=== PATIENT | male | born 1985 | race African-American/Black ===

== ENCOUNTER 2021-12-09 12:43 | Inpatient (IN) | payer OTHER, SELFPAY ==
[2021-12-09] MEDS ORDERED: Morphine 4 MG/ML VIAL ONE ×3 (12:54→13:42)
[2021-12-09] MEDS ORDERED: Boostrix 0.5 ML (Tdap) VIAL ONE (12:59)
[2021-12-09] MEDS ORDERED: CEFAZOLIN 1 GM VIAL ONE (12:59)
[2021-12-09 13:16] LABS: #Basophils 0.1 thou/uL (0.0-0.2); #Eosinphils 0.1 thou/uL (0.0-0.7); #Lymphocytes 1.2 thou/uL (1.20-3.40); #Monocytes 0.3 thou/uL (0.11-0.59); %Basophils 0.9 % (0.0-1.0); %Eosinophils 1.5 % (0.0-10.0); %Lymphocytes 21.8 % (21.0-51.0); %Neutrophils 69.7 % (42.0-75.0); Hemoglobin 14.3 g/dL (14.0-18.0); Mean Corpuscular HGB CONC 32.9 g/dL (32.0-36.0); Mean Corpuscular Hemoglobin 33.4 pg (27.0-31.0); Mean Platelet Volume 7.1 fL (7.4-10.4); Platelet Count 202 thou/uL (130-400); RBC Distribution Width 11.9 % (11.5-14.5); Red Blood Cell (RBC) Count 4.28 mill/uL (4.70-6.10); White Blood Cell (WBC) Count 5.7 thou/uL (4.8-10.8)
[2021-12-09 13:34] LABS: ALT (SGPT) 19 U/L (8-55); AST (SGOT) 21 U/L (5-34); Albumin 3.9 g/dL (3.5-5.0); Alcohol Less than 10 mg/dL (Less than 10); Alkaline Phosphatase 66 U/L (40-110); Anion Gap 16 mmol/L (10-20); BUN (Urea Nitrogen) 10 mg/dL (8.9-20.6); Bilirubin, Total 0.4 mg/dL (0.2-1.2); Calc. Creatinine Clearance 0 mL/min (70-130); Calcium 9.1 mg/dL (7.8-10.44); Carbon Dioxide 20 mmol/L (22-29); Chloride 103 mmol/L (98-107); Globulin 3.9 g/dL (2.4-3.5); Glucose 143 mg/dL (70-105); INR-International Normal Ratio 1.1; Potassium 4.3 mmol/L (3.5-5.1); Protein, Total 7.8 g/dL (6.0-8.3); Prothrombin Time 13.8 sec (12.0-14.7); Sodium 135 mmol/L (136-145)
[2021-12-09 13:36] LABS: PTT 31.1 sec (22.9-36.1)
[2021-12-09] MEDS ORDERED: hydrALAZINE 20 MG/ML VIAL SLOW IVP PRN (14:21)
[2021-12-09] MEDS ORDERED: Morphine 4 MG/ML VIAL SLOW IVP PRN (14:21)
[2021-12-09] MEDS ORDERED: Ondansetron PF 4 MG/2 ML Vial IVP PRN (14:21)
[2021-12-09] MEDS ORDERED: Dextrose 50% Abboject 50 ML SYRINGE SLOW IVP PRN (14:21)
[2021-12-09] MEDS ORDERED: Dextrose 5% in Water 1,000 ML IV PRN (14:21)
[2021-12-09] MEDS ORDERED: Sodium Chloride 0.9% 1,000 ML IV SCH (14:30)
[2021-12-09 14:34] LABS: Magnesium 2.1 mg/dL (1.6-2.6)
[2021-12-09 14:44] LABS: Phosphorus 1.7 mg/dL (2.3-4.7)
[2021-12-09] MEDS ORDERED: ceFAZolin 2 GM/Dextrose 50 ML 2 GM in Premix Bag 1 BAG IVPB SCH (15:00)
[2021-12-09 15:49] LABS: SARS-CoV-2 NAA Rapid Test Not Detected (NotDetected)
[2021-12-09 15:57] LABS: Bilirubin Negative (Negative); Blood, Urine Negative (Negative); Clarity Clear (Clear); Glucose, Urine (Dipstick) Normal (Negative); Ketone, Urine Negative (Negative); Leukocyte Negative Leu/uL (Negative); Nitrite Negative (Negative); Protein, Urine (Dipstick) 10 mg/dL (Neg-Trace); Specific Gravity, Urine 1.016 (1.002-1.036); Urobilinogen Normal mg/dL (Less than 2); pH, Urine 7.5 (5.0-9.0)
[2021-12-09 16:44] LABS: Amphetamine Not Detected (NotDetected); Barbiturates Screen Not Detected (NotDetected); Benzodiazepine Screen Not Detected (NotDetected); Cocaine Metabolite Screen Not Detected (NotDetected); Methadone Not Detected (NotDetected); Methamphetamine Detected (NotDetected); Opiate Screen Detected (NotDetected); Oxycodone Screen Not Detected (NotDetected); Phencyclidine (PCP) Not Detected (NotDetected); THC/Cannabinoid Screen Detected (NotDetected); Tricyclic Screen Not Detected (NotDetected)
[2021-12-09] MEDS ORDERED: Midazolam HCl 2 mg/2 ml Vial ONE (17:53)
[2021-12-09] MEDS ORDERED: HYDROmorphone 0.5 MG/0.5 ML SYRINGE ONE ×2 (17:54→22:34)
[2021-12-09] MEDS ORDERED: Ketamine 50 MG/ML (10ML VIAL) ONE (17:54)
[2021-12-09] MEDS ORDERED: fentaNYL Citrate/PF 100 MCG/2 ML SYRINGE ONE (17:54)
[2021-12-09] MEDS ORDERED: Sodium Phosphate 30 MMOL in Sodium Chloride 0.9% 250 ML 250 ML IVPB SCH (18:15)
[2021-12-09] MEDS ORDERED: Ondansetron PF 4 MG/2 ML Vial ONE (18:45)
[2021-12-09] MEDS ORDERED: Succinylcholine 200 MG/10 ml SYRINGE FS ONE (18:45)
[2021-12-09] MEDS ORDERED: Rocuronium Bromide 10 MG/ML (10ML VIAL) ONE (18:45)
[2021-12-09] MEDS ORDERED: PHENYLEPHRINE-NS 100 MCG/ML 10 ML SYRINGE ONE (18:45)
[2021-12-09] MEDS ORDERED: Dexamethasone 20 MG/5 ML VIAL ONE (18:45)
[2021-12-09] MEDS ORDERED: PROPOFOL 200 MG/20 ML VIAL ONE (18:45)
[2021-12-09] MEDS ORDERED: Lidocaine 1% PF 5 ML VIAL ONE (18:45)
[2021-12-09] MEDS ORDERED: HYDROmorphone 2 MG/ML VIAL ONE (20:25)
[2021-12-09] MEDS ORDERED: Promethazine HCl 25 MG/ML VIAL IVPB PRN (22:00)
[2021-12-09] MEDS ORDERED: HYDROmorphone 2 MG/ML VIAL SLOW IVP PRN (22:00)
[2021-12-09] MEDS ORDERED: Ondansetron HCl/PF 4 MG/2 ML Vial IVP PRN (22:00)
[2021-12-09] MEDS ORDERED: Promethazine HCl 25 MG/ML VIAL IM PRN (22:00)
[2021-12-09] MEDS ORDERED: Meperidine HCl/PF 25 MG/ML VIAL SLOW IVP PRN (22:00)
[2021-12-09] MEDS ORDERED: Ketorolac Tromethamine 30 MG/ML VIAL IVP PRN (22:00)
[2021-12-09] MEDS ORDERED: CEFAZOLIN 2 GM in Premix Bag 1 BAG IVPB SCH (22:00)
[2021-12-09] MEDS ORDERED: Fentanyl 100 MCG/2 ML VIAL ONE (22:02)
[2021-12-09] MEDS: traMADol HCl 50 MG TAB PO SCH ×2 (23:22→23:34)
[2021-12-09] MEDS: Acetaminophen 500 MG TAB PO SCH ×2 (23:22→23:34)
[2021-12-09] MEDS: CEFAZOLIN 2 GM in Sodium Chloride 0.9% 100 ML IVPB SCH (23:23)
[2021-12-09] MEDS: Senokot S 8.6-50 MG TAB PO SCH (23:23)
[2021-12-09] MEDS: Ibuprofen 200 MG TAB PO SCH (23:23)
[2021-12-09] MEDS: Gabapentin 300 MG CAP PO SCH (23:23)
[2021-12-09 23:26] VITALS: BMI 20.6
[2021-12-09] MEDS: Cyclobenzaprine 10 MG TAB PO PRN (23:45)
[2021-12-10] MEDS: traMADol HCl 50 MG TAB PO SCH ×4 (05:17→23:23)
[2021-12-10] MEDS: Ibuprofen 200 MG TAB PO SCH ×3 (05:18→21:46)
[2021-12-10] MEDS: CEFAZOLIN 2 GM in Sodium Chloride 0.9% 100 ML IVPB SCH ×3 (05:18→21:47)
[2021-12-10] MEDS: Acetaminophen 500 MG TAB PO SCH ×4 (05:18→23:23)
[2021-12-10 06:58] LABS: #Lymphocytes 0.6 thou/uL (1.20-3.40); #Monocytes 0.7 thou/uL (0.11-0.59); #Neutrophils 5.8 thou/uL (1.40-6.50); %Eosinophils 0.1 % (0.0-10.0); %Lymphocytes 7.8 % (21.0-51.0); %Monocytes 10.1 % (0.0-10.0); %Neutrophils 82.1 % (42.0-75.0); Hemoglobin 9.4 g/dL (14.0-18.0); Mean Corpuscular HGB CONC 32.3 g/dL (32.0-36.0); Mean Corpuscular Hemoglobin 33.4 pg (27.0-31.0); Mean Platelet Volume 7.7 fL (7.4-10.4); Platelet Count 157 thou/uL (130-400); RBC Distribution Width 11.9 % (11.5-14.5); Red Blood Cell (RBC) Count 2.81 mill/uL (4.70-6.10); White Blood Cell (WBC) Count 7.1 thou/uL (4.8-10.8)
[2021-12-10 08:02] LABS: Anion Gap 9 mmol/L (10-20); BUN (Urea Nitrogen) 6 mg/dL (8.9-20.6); Calc. Creatinine Clearance 170 mL/min (70-130); Calcium 5.5 mg/dL (7.8-10.44); Carbon Dioxide 18 mmol/L (22-29); Chloride 114 mmol/L (98-107); Glucose 123 mg/dL (70-105); Magnesium 1.5 mg/dL (1.6-2.6); Phosphorus 1.9 mg/dL (2.3-4.7); Sodium 138 mmol/L (136-145)
[2021-12-10] MEDS: Gabapentin 300 MG CAP PO SCH ×3 (08:34→21:46)
[2021-12-10] MEDS: Cyclobenzaprine 10 MG TAB PO PRN (08:34)
[2021-12-10] MEDS: Polyethylene Glycol 3350 17 GM Packet PO SCH (08:35)
[2021-12-10] MEDS: Senokot S 8.6-50 MG TAB PO SCH ×2 (08:35→21:45)
[2021-12-10] MEDS ORDERED: Magnesium 2 GM/50 ML(in water) 2 GM in Premix Bag 1 BAG IVPB SCH (08:45)
[2021-12-10] MEDS ORDERED: Potassium Phosphate 30 MMOL in Sodium Chloride 0.9% 250 ML 250 ML IVPB SCH (08:45)
[2021-12-10] MEDS ORDERED: Calcium Chloride 13.6 MEQ in Sodium Chloride 0.9% 100 ML IVPB SCH (08:45)
[2021-12-10] MEDS ORDERED: Prevnar 13-Val Conj/PF 0.5 ML SYRINGE IM ONE (09:00)
[2021-12-10 19:29] LABS: Syphilis Antibody Index 15.75 S/CO (<1.00 Non-Reactive)
[2021-12-10 19:36] LABS: Syphilis Antibody INDETERMINATE (Nonreactive)
[2021-12-11] MEDS: traMADol HCl 50 MG TAB PO SCH ×4 (05:35→23:53)
[2021-12-11] MEDS: Acetaminophen 500 MG TAB PO SCH ×4 (05:35→23:53)
[2021-12-11] MEDS: CEFAZOLIN 2 GM in Sodium Chloride 0.9% 100 ML IVPB SCH ×3 (05:36→21:30)
[2021-12-11] MEDS: Ibuprofen 200 MG TAB PO SCH ×3 (05:36→21:30)
[2021-12-11 07:47] LABS: #Eosinphils 0.1 thou/uL (0.0-0.7); #Lymphocytes 1.5 thou/uL (1.20-3.40); #Monocytes 0.8 thou/uL (0.11-0.59); #Neutrophils 4.8 thou/uL (1.40-6.50); %Basophils 0.3 % (0.0-1.0); %Lymphocytes 20.7 % (21.0-51.0); %Monocytes 11.3 % (0.0-10.0); %Neutrophils 66.7 % (42.0-75.0); Hemoglobin 9.7 g/dL (14.0-18.0); Mean Corpuscular HGB CONC 32.8 g/dL (32.0-36.0); Mean Corpuscular Hemoglobin 33.1 pg (27.0-31.0); Mean Platelet Volume 7.5 fL (7.4-10.4); Platelet Count 151 thou/uL (130-400); RBC Distribution Width 11.9 % (11.5-14.5); Red Blood Cell (RBC) Count 2.93 mill/uL (4.70-6.10); White Blood Cell (WBC) Count 7.2 thou/uL (4.8-10.8)
[2021-12-11 08:07] LABS: Anion Gap 12 mmol/L (10-20); BUN (Urea Nitrogen) 8 mg/dL (8.9-20.6); Calc. Creatinine Clearance 103 mL/min (70-130); Calcium 8.1 mg/dL (7.8-10.44); Carbon Dioxide 22 mmol/L (22-29); Chloride 104 mmol/L (98-107); Glucose 146 mg/dL (70-105); Magnesium 1.8 mg/dL (1.6-2.6); Phosphorus 2.1 mg/dL (2.3-4.7); Potassium 3.8 mmol/L (3.5-5.1); Sodium 134 mmol/L (136-145)
[2021-12-11] MEDS ORDERED: Magnesium 2 GM/50 ML(in water) 2 GM in Premix Bag 1 BAG IVPB SCH (08:30)
[2021-12-11] MEDS ORDERED: Potassium Phosphate 30 MMOL, Magnesium Sulfate 2 GM in Sodium Chloride 0.9% 250 ML 250 ML IVPB SCH (09:00)
[2021-12-11] MEDS: Gabapentin 300 MG CAP PO SCH ×3 (09:31→21:29)
[2021-12-11] MEDS: Senokot S 8.6-50 MG TAB PO SCH ×2 (09:31→21:30)
[2021-12-11] MEDS: Enoxaparin Sodium 40 MG/0.4 ML SYRINGE SC SCH (09:32)
[2021-12-11] MEDS: Polyethylene Glycol 3350 17 GM Packet PO SCH (09:32)
[2021-12-11 14:36] LABS: %CD4 (Helper/Inducer) 23.8 % (30.8-58.5); Absolute CD4 405 /uL (359-1519); Lymphocytes/Gated Cell Count 1.7 x10E3/uL (0.7-3.1); Total Lymphocyte 21 % (Not Estab.); WBC Total Count 8.1 x10E3/uL (3.4-10.8)
[2021-12-12] MEDS: Acetaminophen 500 MG TAB PO SCH ×3 (05:35→17:46)
[2021-12-12] MEDS: Ibuprofen 200 MG TAB PO SCH ×3 (05:35→20:53)
[2021-12-12] MEDS: traMADol HCl 50 MG TAB PO SCH ×3 (05:35→17:47)
[2021-12-12] MEDS: Enoxaparin Sodium 40 MG/0.4 ML SYRINGE SC SCH (09:55)
[2021-12-12] MEDS: Senokot S 8.6-50 MG TAB PO SCH ×2 (09:57→20:53)
[2021-12-12] MEDS: Gabapentin 300 MG CAP PO SCH ×3 (09:57→20:53)
[2021-12-12] MEDS: Polyethylene Glycol 3350 17 GM Packet PO SCH (09:59)
[2021-12-13] MEDS: Acetaminophen 500 MG TAB PO SCH ×5 (00:06→23:18)
[2021-12-13] MEDS: traMADol HCl 50 MG TAB PO SCH ×5 (00:07→23:18)
[2021-12-13] MEDS: Ibuprofen 200 MG TAB PO SCH ×3 (06:03→21:30)
[2021-12-13] MEDS: Enoxaparin Sodium 40 MG/0.4 ML SYRINGE SC SCH (08:49)
[2021-12-13] MEDS: Gabapentin 300 MG CAP PO SCH ×3 (08:50→21:30)
[2021-12-13] MEDS: Polyethylene Glycol 3350 17 GM Packet PO SCH (08:51)
[2021-12-13] MEDS: Senokot S 8.6-50 MG TAB PO SCH ×2 (08:52→21:31)
[2021-12-13 18:37] LABS: LOG10 HIV-1 RNA 3.987 (.)
[2021-12-14] MEDS: Acetaminophen 500 MG TAB PO SCH (05:09)
[2021-12-14] MEDS: traMADol HCl 50 MG TAB PO SCH (05:10)
[2021-12-14] MEDS: Ibuprofen 200 MG TAB PO SCH (05:10)
[2021-12-14 07:55] VITALS: BP 151/50; TEMP 98
[2021-12-14] MEDS: Gabapentin 300 MG CAP PO SCH (08:52)
[2021-12-14] MEDS: Enoxaparin Sodium 40 MG/0.4 ML SYRINGE SC SCH (08:53)
[2021-12-14] MEDS: Polyethylene Glycol 3350 17 GM Packet PO SCH (08:58)
[2021-12-14] MEDS: Senokot S 8.6-50 MG TAB PO SCH (08:58)
== END 2021-12-14 10:10 | disposition home or self-care (01) | DRG 494 ==
LOC: ERS 12:43 → SDC/OP 17:50 → SURG A 22:58
PROVIDERS: ADMIT Specialist; ATTEND Specialist
PROC: 0PSG04Z Reposition Left Humeral Shaft with Internal Fixation Device, Open Approach (ICD-10-PCS; principal; 2021-12-09)
DX: S42.352B Displaced comminuted fracture of shaft of humerus, left arm, initial encounter for open fracture (principal); Z20.822 Contact with and (suspected) exposure to COVID-19; Z23 Encounter for immunization; Z21 Asymptomatic human immunodeficiency virus [HIV] infection status; F12.10 Cannabis abuse, uncomplicated; F15.10 Other stimulant abuse, uncomplicated; Y04.2XXA Assault by strike against or bumped into by another person, initial encounter; Z28.21 Immunization not carried out because of patient refusal; Z98.890 Other specified postprocedural states; Z87.442 Personal history of urinary calculi; Z87.11 Personal history of peptic ulcer disease
CPT/HCPCS: 29105; 36415; 70450; 70486; 71045; 72125; 76000; 80048; 80053; 80306; 80307; 81003; 83735; 84100; 85025; 85610; 85730; 86361; 86593; 86780; 87536; 90471; 90715; 94640; 96374; 96375; 96376; C1713; C1769; G0390; J0690; J1100; J1170; J1650; J2250; J2270; J2405; J2704; J3010; J3475; J3490; J7050; J7620; U0002

== ENCOUNTER 2022-01-10 13:56 | Emergency (ER) | payer OTHER, SELFPAY ==
[2022-01-10] MEDS ORDERED: Lidocaine 1% PF 5 ML VIAL ONE (15:48)
[2022-01-10] MEDS ORDERED: cefTRIAXone\\ROCEPHIN 500 MG VIAL ONE (15:48)
== END 2022-01-10 15:35 | disposition home or self-care (01) ==
LOC: ERS 13:56
DX: S42.342D Displaced spiral fracture of shaft of humerus, left arm, subsequent encounter for fracture with routine healing (principal); Y04.8XXD Assault by other bodily force, subsequent encounter; Z21 Asymptomatic human immunodeficiency virus [HIV] infection status
CPT/HCPCS: 96372; 99283; J0696

== ENCOUNTER 2022-05-02 16:50 | Emergency (ER) | payer OTHER, SELFPAY | END 2022-05-02 19:51 | disposition home or self-care (01) | LOC: ERS 16:50 | DX: L02.415 Cutaneous abscess of right lower limb (principal); F17.210 Nicotine dependence, cigarettes, uncomplicated | CPT/HCPCS: 99282 ==

== ENCOUNTER 2022-05-03 00:16 | Emergency (ER) | payer SELFPAY ==
[2022-05-03 01:15] LABS: #Eosinphils 0.3 thou/uL (0.0-0.7); #Lymphocytes 2.5 thou/uL (1.20-3.40); #Monocytes 0.4 thou/uL (0.11-0.59); #Neutrophils 1.7 thou/uL (1.40-6.50); %Basophils 0.9 % (0.0-1.0); %Eosinophils 6.8 % (0.0-10.0); %Lymphocytes 49.2 % (21.0-51.0); %Monocytes 8.4 % (0.0-10.0); %Neutrophils 34.8 % (42.0-75.0); Hemoglobin 13.3 g/dL (14.0-18.0); Mean Corpuscular HGB CONC 32.1 g/dL (32.0-36.0); Mean Corpuscular Hemoglobin 30.1 pg (27.0-31.0); Mean Corpuscular Volume 93.6 fl (78.0-98.0); Mean Platelet Volume 6.4 fL (7.4-10.4); Platelet Count 274 thou/uL (130-400); RBC Distribution Width 14.6 % (11.5-14.5); Red Blood Cell (RBC) Count 4.44 mill/uL (4.70-6.10)
[2022-05-03 02:15] LABS: ALT (SGPT) 18 U/L (8-55); AST (SGOT) 25 U/L (5-34); Acetaminophen Less than 10.0 mcg/mL (10.0-30.0); Albumin 3.9 g/dL (3.5-5.0); Alcohol Less than 10 mg/dL (Less than 10); Alkaline Phosphatase 111 U/L (40-110); Anion Gap 11 mmol/L (10-20); BUN (Urea Nitrogen) 10 mg/dL (8.9-20.6); Bilirubin, Total 0.6 mg/dL (0.2-1.2); CK (CPK) 524 U/L (30-200); Calc. Creatinine Clearance 0 mL/min (70-130); Calcium 9.3 mg/dL (7.8-10.44); Carbon Dioxide 27 mmol/L (22-29); Chloride 100 mmol/L (98-107); Estimated GFR 81; Globulin 4.2 g/dL (2.4-3.5); Glucose 111 mg/dL (70-105); Potassium 3.5 mmol/L (3.5-5.1); Protein, Total 8.1 g/dL (6.0-8.3); Salicylate Less than 8.0 mg/dL (15.0-30.0); Sodium 134 mmol/L (136-145)
== END 2022-05-03 01:37 | disposition home or self-care (01) ==
LOC: ERS 00:16
DX: B20 Human immunodeficiency virus [HIV] disease (principal); F17.210 Nicotine dependence, cigarettes, uncomplicated; Z79.899 Other long term (current) drug therapy
CPT/HCPCS: 36415; 80053; 80307; 82550; 84443; 85025; 93005

== ENCOUNTER 2022-08-26 01:13 | Emergency (ER) | payer SELFPAY ==
[2022-08-26] MEDS ORDERED: Ketorolac Tromethamine 30 MG/ML VIAL ONE (02:25)
== END 2022-08-26 03:01 | disposition home or self-care (01) ==
LOC: ERS 01:13
DX: M79.602 Pain in left arm (principal); Y93.19 Activity, other involving water and watercraft
CPT/HCPCS: 96372; J1885